=== PATIENT | female | born 1995 | race Caucasian/White ===

== ENCOUNTER 2017-01-13 12:19 | Outpatient (CLI) | payer OTHER ==
[2017-01-13 13:08] LABS: BASOPHILS # (AUTO) 0.1 10^3/uL (0.0-0.1); BASOPHILS % (AUTO) 0.8 %; EOSINOPHILS # (AUTO) 0.1 10^3/uL (0.0-0.7); EOSINOPHILS % (AUTO) 2.1 %; HCT - HEMATOCRIT 37.7 % (37.0-47.0); HGB - HEMOGLOBIN 12.9 g/dL (12.0-16.0); LYMPHOCYTES # (AUTO) 1.9 10^3/uL (1.5-3.5); MEAN CORPUSCULAR HGB CONC 34.2 g/dL (32.0-36.0); MEAN CORPUSCULAR VOLUME 93.5 fL (81.0-99.0); MEAN PLATELET VOLUME 7.3 fL (7.9-10.8); MONOCYTES # (AUTO) 0.3 10^3/uL (0.0-1.0); MONOCYTES % (AUTO) 4.7 %; NEUTROPHILS # (AUTO) 4.3 10^3/uL (1.5-6.6); NEUTROPHILS % (AUTO) 64.4 %; RED BLOOD COUNT 4.04 10^6/uL (4.20-5.40); RED CELL DISTRIBUTION WIDTH 12.2 % (12.0-15.0); UNCORRECTED WHITE BLOOD COUNT 6.6 x10^3/uL; WHITE BLOOD COUNT 6.6 x10^3/uL (4.8-10.8)
[2017-01-13 14:05] LABS: HEMOGLOBIN A1C 0.42 g/dL
[2017-01-13 14:31] LABS: THYROID STIMULATING HORMONE 2.33 uIU/mL (0.34-5.60)
[2017-01-13 14:36] LABS: PROLACTIN 6.15 ng/mL
[2017-01-14 05:16] LABS: TEST RESULT REPORT
[2017-01-17 17:01] LABS: TEST RESULT REPORT
== END 2017-01-13 12:20 | disposition home or self-care (01) ==
LOC: LAB 12:19
PROVIDERS: ATTEND Registered Nurse
DX: N92.5 Other specified irregular menstruation (principal)
CPT/HCPCS: 36415; 81599; 82627; 83036; 84146; 84402; 84403; 84443; 85025; 85651; 86141

== ENCOUNTER 2017-01-20 12:19 | Outpatient (CLI) | payer OTHER | END 2017-01-20 12:20 | disposition home or self-care (01) | LOC: LAB 12:19 | PROVIDERS: ATTEND Registered Nurse | DX: N92.5 Other specified irregular menstruation (principal) | CPT/HCPCS: 36415; 84144 ==

== ENCOUNTER 2017-02-05 16:57 | Outpatient (CLI) | payer OTHER ==
--- NOTE | 2017-02-06 11:26 | Ultrasound Report ---
RENAL ULTRASOUND: 02/05/2017 CLINICAL INDICATION: Androgen excess, question adrenal mass. TECHNIQUE: Real-time scanning was performed with herbicide service sales representative static images obtained. FINDINGS: Ultrasound of the kidneys was performed. The right kidney measures 9.1 x 4.2 x 4.1 cm, an d the left kidney measures 9.0 x 3.8 x 3.8 cm. Both kidneys demonstrate normal renal echotexture. N o hydronephrosis or focal renal abnormality is appreciated. Scanning of the bilateral suprarenal spa royer demonstrates no evidence of an adrenal mass. The visualized portions of the spleen and liver harry ear unremarkable. No free fluid is present. IMPRESSION: NO EVIDENCE OF AN ADRENAL MASS ON EITHER SIDE. UNREMARKABLE KIDNEYS. JOB #: [id number] EXT JOB #:[id number]
== END 2017-02-05 16:58 | disposition home or self-care (01) ==
LOC: DI 16:57
PROVIDERS: ATTEND Registered Nurse
DX: E28.1 Androgen excess (principal)
CPT/HCPCS: 76770

== ENCOUNTER 2017-02-21 13:42 | Outpatient (CLI) | payer OTHER ==
[2017-02-21 15:35] LABS: FOLLICLE STIMULATING HORMONE 6.24 mIU/mL
[2017-02-21 15:36] LABS: LUTEINIZING HORMONE 3.8 mIU/mL
== END 2017-02-21 13:43 | disposition home or self-care (01) ==
LOC: LAB 13:42
PROVIDERS: ATTEND Registered Nurse
DX: E28.1 Androgen excess (principal)
CPT/HCPCS: 36415; 82670; 83001; 83002

== ENCOUNTER 2017-03-11 12:54 | Outpatient (CLI) | payer OTHER | END 2017-03-11 12:55 | disposition home or self-care (01) | LOC: LAB 12:54 | PROVIDERS: ATTEND Registered Nurse | DX: E28.1 Androgen excess (principal) | CPT/HCPCS: 36415; 84144 ==

== ENCOUNTER 2017-04-10 15:30 | Outpatient (CLI) | payer OTHER | END 2017-04-10 15:31 | disposition home or self-care (01) | LOC: LAB 15:30 | PROVIDERS: ATTEND Registered Nurse | DX: E28.2 Polycystic ovarian syndrome (principal) | CPT/HCPCS: 36415; 84144 ==

== ENCOUNTER 2017-06-16 15:38 | Outpatient (CLI) | payer OTHER | END 2017-06-16 15:39 | disposition home or self-care (01) | LOC: LAB 15:38 | PROVIDERS: ATTEND Registered Nurse | DX: E28.2 Polycystic ovarian syndrome (principal) | CPT/HCPCS: 36415; 84144 ==

== ENCOUNTER 2017-06-24 11:16 | Outpatient (CLI) | payer OTHER ==
[~2017-06-24 11:16] MED LIST: IOTHALAMATE MEGLUMINE 50 ML VIAL ONE
[2017-06-24] MEDS ORDERED: IOTHALAMATE MEGLUMINE 50 ML VIAL IVP ONE (12:59)
--- NOTE | 2017-06-24 14:52 | XRAY Report ---
HYSTEROSALPINGOGRAM: 06/24/2017 CLINICAL INDICATION: Infertility. FINDINGS: Hysterosalpingogram was performed in conjunction with Dr. Sheldon. The uterine cavity appears unremarkable. The left falopian tube is patent, but there is loculation of contrast in the left pelvis. Free spill from the right fallopian tube. No intraluminal filling defect is appreciated within the uterine cavity. IMPRESSION: PATENT LEFT FALLOPIAN TUBE, WITH LEFT-SIDED PELVIC ADHESIONS. FREE SPILL FROM THE PATENT RIGHT FALLOPIAN TUBE. NORMAL UTERINE CAVITY. FLUOROSCOPY TIME: 2 minutes; 5 spot images obtained. TD: 06/24/2017 14:51 MTDD
== END 2017-06-24 11:17 | disposition home or self-care (01) ==
LOC: DI 11:16
PROVIDERS: ATTEND Registered Nurse
DX: N97.9 Female infertility, unspecified (principal); N73.6 Female pelvic peritoneal adhesions (postinfective)
CPT/HCPCS: 58340; 74740; Q9961

== ENCOUNTER 2017-07-14 16:03 | Outpatient (CLI) | payer OTHER | END 2017-07-14 16:04 | disposition home or self-care (01) | LOC: LAB 16:03 | PROVIDERS: ATTEND Registered Nurse | DX: N97.9 Female infertility, unspecified (principal) | CPT/HCPCS: 36415; 84144 ==

== ENCOUNTER 2017-07-28 11:40 | Emergency (ER) | payer OTHER ==
[2017-07-28 12:14] LABS: BILIRUBIN,URINE NEGATIVE (NEGATIVE); GLUCOSE, URINE (UA) NEGATIVE (NEGATIVE); KETONES,URINE (UA) NEGATIVE (NEGATIVE); LEUKOCYTE ESTERASE, URINE MODERATE (NEGATIVE); NITRITE,URINE NEGATIVE (NEGATIVE); OCCULT BLOOD,URINE TRACE-INTA (NEGATIVE); PH,URINE 5.5 PH (5.0-7.5); PROTEIN,URINE NEGATIVE (NEGATIVE); UROBILINOGEN,URINE 0.2 (NORMAL) E.U./dL (NORMAL)
[2017-07-28 12:16] LABS: CLARITY,URINE HAZY (CLEAR)
[2017-07-28 12:25] LABS: BACTERIA,URINE Few /HPF (None Seen); RBC,URINE 0-5 /HPF (0-5); SQUAMOUS EPITHELIAL CELL,UR FEW Squamous (<= Few)
[2017-07-28 12:26] LABS: BASOPHILS # (AUTO) 0.1 10^3/uL (0.0-0.1); BASOPHILS % (AUTO) 0.9 %; EOSINOPHILS # (AUTO) 0.3 10^3/uL (0.0-0.7); EOSINOPHILS % (AUTO) 4.5 %; HGB - HEMOGLOBIN 12.1 g/dL (12.0-16.0); LYMPHOCYTES # (AUTO) 1.8 10^3/uL (1.5-3.5); LYMPHOCYTES % (AUTO) 30.1 %; MEAN CORPUSCULAR HEMOGLOBIN 31.5 pg (27.0-31.0); MEAN CORPUSCULAR HGB CONC 33.3 g/dL (32.0-36.0); MEAN CORPUSCULAR VOLUME 94.6 fL (81.0-99.0); MEAN PLATELET VOLUME 7.3 fL (7.9-10.8); MONOCYTES # (AUTO) 0.4 10^3/uL (0.0-1.0); MONOCYTES % (AUTO) 6.1 %; NEUTROPHILS # (AUTO) 3.5 10^3/uL (1.5-6.6); NEUTROPHILS % (AUTO) 58.4 %; PLT - PLATELET COUNT 256 10^3/uL (130-450); RED BLOOD COUNT 3.83 10^6/uL (4.20-5.40)
--- NOTE | 2017-07-28 12:27 | ED Physician Documentation ---
History of Present Illness - Stated complaint Stated Complaint: BLEEDING/5WKS - Chief complaint Chief Complaint: General - History obtained from History obtained from: Patient, Family - History of Present Illness Timing: Today Pain level max: 0 Pain level now: 0 Improved by: nothing Worsened by: nothing - Additonal information Additional information: Patient is a 21-year-old female with a history of polycystic ovarian syndrome who has been trying to get for some time. Had a positive test at home today had vaginal bleeding with a small blood clot passed. No further abdominal cramping or bleeding. Concerned she may be miscarrying. Review of Systems Ten Systems: 10 systems reviewed and negative Constitutional: denies: Fever, Chills Ears: denies: Ear pain Nose: denies: Rhinorrhea / runny nose, Congestion Throat: denies: Sore throat Respiratory: denies: Cough GI: denies: Nausea, Vomiting, Diarrhea : denies: Dysuria, Frequency, Hesitancy, Incontinent Skin: denies: Rash PD PAST MEDICAL HISTORY - Past Medical History Past Medical History: Yes Other Past Medical History: PCOS - Present Medications Home Medications: Ambulatory Orders Medication Instructions Recorded Confirmed Cephalexin [Keflex] 500 mg PO Q6H #20 capsule 07/28/17 Pnv No.122/Iron/Folic Acid 07/28/17 [ Multi Tablet] metFORMIN [Glucophage] 500 mg PO BIDWM 07/28/17 07/28/17 - Allergies Allergies/Adverse Reactions: Allergies Allergy/AdvReac Type Severity Reaction Status Date / Time Sulfa (Sulfonamide Allergy Rash Verified 07/28/17 11:49 Antibiotics) - Social History Does the pt smoke?: No Smoking Status: Never smoker PD ED PE NORMAL - Vitals Vital signs reviewed: Yes - General General: Alert and oriented X 3, No acute distress - HEENT HEENT: Moist mucous membranes - Neck Neck: Supple, no meningeal sign - Cardiac Cardiac: RRR - Respiratory Respiratory: No respiratory distress, Clear bilaterally - Abdomen Abdomen: Soft, Non tender, Non distended - Back Back: No CVA TTP - Derm Derm: Warm and dry, No rash - Extremities Extremities: No edema - Neuro Neuro: Alert and oriented X 3 Results - Vitals Vitals: Oxygen O2 Source Room air - Labs Labs: Microbiology 07/28/17 12:00 Urine Culture - Final Urine,Random 10-50,000 COLONIES/ML Polymicrobial growth including potential pathogens. This is suggestive of skin or other contamination. Laboratory Tests 07/28/17 07/28/17 07/28/17 12:00 12:08 12:08 WBC 6.0 RBC 3.83 L Hgb 12.1 Hct 36.3 L MCV 94.6 MCH 31.5 H MCHC 33.3 RDW 12.0 Plt Count 256 MPV 7.3 L Neut # 3.5 Lymph # 1.8 [place]oux # 0.4 Eos # 0.3 Baso # 0.1 Absolute Nucleated RBC 0.00 Nucleated RBC % 0.0 Sodium 136 Potassium 3.6 Chloride 104 Carbon Dioxide 23 Anion Gap 9.0 BUN 7 Creatinine 0.6 Estimated GFR (MDRD) 124 Glucose 93 Calcium 8.7 Total Bilirubin 0.6 AST 17 ALT < 10 L Alkaline Phosphatase 43 Total Protein 7.2 Albumin 4.4 Globulin 2.8 Albumin/Globulin Ratio 1.6 Lipase 18 L HCG, Quant Urine Color YELLOW Urine Clarity HAZY Urine pH 5.5 Ur Specific Lee 1.010 Urine Protein NEGATIVE Urine Glucose (UA) NEGATIVE Urine Ketones NEGATIVE Urine Occult Blood TRACE-INTA Urine Nitrite NEGATIVE Urine Bilirubin NEGATIVE Urine Urobilinogen 0.2 (NORMAL) Ur Leukocyte Esterase MODERATE H Urine RBC 0-5 Urine WBC 6-10 H Ur Squamous Epith Cells FEW Squamous Urine Bacteria Few Ur Microscopic Review INDICATED Urine Culture Comments INDICATED Blood Type 07/28/17 07/28/17 12:08 12:08 WBC RBC Hgb Hct MCV MCH MCHC RDW Plt Count MPV Neut # Lymph # [place] # Eos # Baso # Absolute Nucleated RBC Nucleated RBC % Sodium Potassium Chloride Carbon Dioxide Anion Gap BUN Creatinine Estimated GFR (MDRD) Glucose Calcium Total Bilirubin AST ALT Alkaline Phosphatase Total Protein Albumin Globulin Albumin/Globulin Ratio Lipase HCG, Quant 1299.45 Urine Color Urine Clarity Urine pH Ur Specific Lee Urine Protein Urine Glucose (UA) Urine Ketones Urine Occult Blood Urine Nitrite Urine Bilirubin Urine Urobilinogen Ur Leukocyte Esterase Urine RBC Urine WBC Ur Squamous Epith Cells Urine Bacteria Ur Microscopic Review Urine Culture Comments Blood Type B POSITIVE - Rads (name of study) pelvic US Radiology: Prelim report reviewed, EMP read contemporaneously, See rad report ( Possible tiny gestational sac within the endometrium. Follow-up serial quantitative beta-hCG is recommended and rescan in approximately 14 days for viability if clinically warranted.) PD MEDICAL DECISION MAKING - ED course Complexity details: reviewed results, re-evaluated patient, considered differential, d/w patient ED course: Patient is a 21-year-old female who presents to the emergency department with a threatened . Will have her follow-up with her FILTER PRESS TENDER HEAD in 2-3 days for repeat hCG to see which direction it is trending. She was counseled regarding her ultrasound results as well. She appears to have a UTI and will treat her for this. Patient has no abdominal pain. No current cramping. Patient counseled regarding signs and symptoms for which I believe and urgent re- evaluation would be necessary. Patient with good understanding of and agreement to plan and is comfortable going home at this time This document was made in part using voice recognition software. While efforts are made to proofread this document, sound alike and grammatical errors may occur. Departure - Departure Disposition: 01 Home, Self Care Clinical Impression: Threatened in early UTI (urinary tract infection) Qualifiers: Urinary tract infection type: acute cystitis Hematuria presence: without hematuria Qualified Code(s): N30.00 - Acute cystitis without hematuria Condition: Good Instructions: ED Miscarriage Poss, ED UTI Cystitis Female Follow-Up: Kimmie Davis, [facility], DEVELOPMENT CHEMIST [Provider Admit Priv/Credential] - Prescriptions: Cephalexin [Keflex] 500 mg PO Q6H #20 capsule Comments: Make sure to follow up with your doctor in 3 days for repeat HCG, it is 1299 today. Take all antbiotics until gone. Return if you worsen. Discharge Date/Time: 07/28/17 13:42
[2017-07-28 12:36] LABS: ALBUMIN 4.4 g/dL (3.2-5.5); ALBUMIN/GLOBULIN RATIO 1.6 (1.0-2.2); ALKALINE PHOSPHATASE 43 IU/L (42-121); ALT ALANINE AMINOTRANSFERASE < 10 IU/L (10-60); AST ASPARTATE AMINOTRANSFERASE 17 IU/L (10-42); BILIRUBIN,TOTAL 0.6 mg/dL (0.2-1.0); BUN - BLOOD UREA NITROGEN 7 mg/dL (6-20); CALCIUM 8.7 mg/dL (8.5-10.3); CARBON DIOXIDE - CO2 23 mmol/L (21-32); CHLORIDE 104 mmol/L (101-111); CREATININE 0.6 mg/dL (0.4-1.0); GFR - MDRD 124 (>89); GLUCOSE 93 mg/dL (70-100); LIPASE 18 U/L (22-51); SODIUM 136 mmol/L (135-145); TOTAL PROTEIN 7.2 g/dL (6.7-8.2)
[2017-07-28] MEDS ORDERED: cephALEXin 250 MG CAPSULE PO STA (13:08)
[2017-07-28 13:42] VITALS: BP 124/76
--- NOTE | 2017-07-28 15:34 | Ultrasound Report ---
FIRST TRIMESTER OB ULTRASOUND WITH TRANSVAGINAL: 07/28/2017 CLINICAL INDICATION: 5 weeks , vaginal bleeding. TECHNIQUE: Transabdominal pelvic ultrasound performed for global evaluation. Transvaginal pelvic ultrasound performed for detailed evaluation. Real-time scanning performed and static images obtained. FINDINGS The uterus is anteverted. There is a 2 mm fluid collection in the endometrial canal, which may represent a tiny gestational sac. The cervix is closed. The right ovary measures 4.0 x 3.3 x 2.4 cm, and contains a 1.7 cm hemorrhagic cyst. The left ovary measures 4.8 x 3.1 x 2.6 cm, and contains a 2.9 cm hemorrhagic cyst. No free fluid is present. IMPRESSION: POSSIBLE TINY GESTATIONAL SAC WITHIN THE ENDOMETRIUM. FOLLOWUP SERIAL QUANTITATIVE BETA HCG IS RECOMMENDED, AND RESCAN IN APPROXIMATELY 14 DAYS FOR VIABILITY, IF CLINICALLY WARRANTED. TD: 07/28/2017 13:05 REVISED: REPORT ORIG. SIGNED ON 07/28/17@1557; ORDERS LINKED ON 09/22/17 jll MTDD
== END 2017-07-28 13:42 | disposition home or self-care (01) ==
LOC: ED 11:40
DX: O20.0 Threatened abortion (principal); O23.11 Infections of bladder in pregnancy, first trimester; Z3A.01 Less than 8 weeks gestation of pregnancy
CPT/HCPCS: 36415; 76801; 76817; 80053; 81001; 83690; 84702; 85025; 86900; 86901; 87086; 99283; 99284; A9270; 81003

== ENCOUNTER 2017-07-31 10:20 | Outpatient (CLI) | payer OTHER | END 2017-07-31 10:21 | disposition home or self-care (01) | LOC: LAB 10:20 | PROVIDERS: ATTEND Registered Nurse | DX: Z32.00 Encounter for pregnancy test, result unknown (principal) | CPT/HCPCS: 36415; 84702 ==

== ENCOUNTER 2017-08-26 10:32 | Outpatient (CLI) | payer OTHER ==
[2017-08-26 11:11] LABS: BASOPHILS % (AUTO) 0.6 %; EOSINOPHILS # (AUTO) 0.4 10^3/uL (0.0-0.7); EOSINOPHILS % (AUTO) 5.5 %; HGB - HEMOGLOBIN 11.6 g/dL (12.0-16.0); LYMPHOCYTES # (AUTO) 1.8 10^3/uL (1.5-3.5); LYMPHOCYTES % (AUTO) 26.7 %; MEAN CORPUSCULAR HEMOGLOBIN 32.3 pg (27.0-31.0); MEAN CORPUSCULAR HGB CONC 33.5 g/dL (32.0-36.0); MEAN CORPUSCULAR VOLUME 96.5 fL (81.0-99.0); MEAN PLATELET VOLUME 7.4 fL (7.9-10.8); MONOCYTES # (AUTO) 0.4 10^3/uL (0.0-1.0); MONOCYTES % (AUTO) 5.6 %; NEUTROPHILS # (AUTO) 4.1 10^3/uL (1.5-6.6); NEUTROPHILS % (AUTO) 61.6 %; PLT - PLATELET COUNT 246 10^3/uL (130-450); RED BLOOD COUNT 3.58 10^6/uL (4.20-5.40); RED CELL DISTRIBUTION WIDTH 12.4 % (12.0-15.0); WHITE BLOOD COUNT 6.7 x10^3/uL (4.8-10.8)
[2017-08-26 12:23] LABS: BILIRUBIN,URINE NEGATIVE (NEGATIVE); GLUCOSE, URINE (UA) NEGATIVE (NEGATIVE); KETONES,URINE (UA) NEGATIVE (NEGATIVE); LEUKOCYTE ESTERASE, URINE SMALL (NEGATIVE); NITRITE,URINE NEGATIVE (NEGATIVE); OCCULT BLOOD,URINE SMALL (NEGATIVE); PROTEIN,URINE NEGATIVE (NEGATIVE); UROBILINOGEN,URINE 0.2 (NORMAL) E.U./dL (NORMAL)
[2017-08-26 12:29] LABS: CLARITY,URINE CLEAR (CLEAR)
[2017-08-26 12:59] LABS: BACTERIA,URINE Many /HPF (None Seen); RBC,URINE 0-5 /HPF (0-5); SQUAMOUS EPITHELIAL CELL,UR MANY Squamous (<= Few)
[2017-08-27 13:28] LABS: HEPATITIS C ANTIBODY NON-REACTIVE (NON-REACTIVE)
[2017-08-27 13:30] LABS: HEPATITIS B SURFACE ANTIGEN NON-REACTIVE (NON-REACTIVE)
[2017-08-27 13:31] LABS: HIV AG/AB 4TH GEN NON-REACTIVE (NON-REACTIVE)
== END 2017-08-26 10:33 | disposition home or self-care (01) ==
LOC: LAB 10:32
PROVIDERS: ATTEND Nurse Practitioner Obstetrics & Gynecology
DX: Z36.9 Encounter for antenatal screening, unspecified (principal)
CPT/HCPCS: 36415; 81001; 81599; 85025; 86592; 86762; 86803; 86850; 86900; 86901; 87340; 87389

== ENCOUNTER 2017-11-11 12:43 | Outpatient (CLI) | payer OTHER ==
--- NOTE | 2017-11-11 16:20 | Ultrasound Report ---
Reason: ENCTR FOR SUPRVSN OF NORMAL 2 TRIM Procedure Date: 11/11/2017 Accession Number: [id number] / [id number] Procedure: US - OB Detailed Eval CPT Code: FULL RESULT: EXAM: COMPLETE OBSTETRICAL ULTRASOUND EXAM DATE: 11/11/2017 03:51 PM. CLINICAL HISTORY: anatomic survey. COMPARISON: None. TECHNIQUE: Real-time sonographic evaluation of the fetus performed by the sap specialist. Multiple welding equipment sales representative static images were saved for review. DATING: EGA 20 weeks 2 days with EMMY 03/29/2018 based on LMP. EGA 20 weeks 0 days with EMMY 03/31/2018 based on the current ultrasound. GENERAL EVALUATION Hamilton . Cardiac activity: 135 bpm. movement: Present Presentation: Variable Placenta: Anterior position. No evidence for previa. Umbilical cord: 3 vessel cord. Central placental cord origin. Amniotic fluid: Subjectively normal. MVP 5.5 cm. BIOMETRY Bi-Parietal Diameter (BPD): 4.9 cm, 20 weeks 5 days Head Circumference (HC): 17.7 cm, 20 weeks 1 day Abdominal Circumference (AC): 14.9 cm, 20 weeks 0 days Femur Length (FL): 3.1 cm, 19 weeks 4 days Estimated Weight: 325 gm ANATOMY The intracranial structures, profile, face/nose/lips, spine, 4 chamber heart and outflow tracts, stomach, abdominal wall and cord insertion, diaphragm, kidneys, bladder, and extremities were imaged and demonstrate no abnormality. MATERNAL STRUCTURES Uterus: Unremarkable. Cervix: Long and closed. Transabdominal length 3.8 cm. Right ovary/adnexa: Unremarkable. Left ovary/adnexa: Unremarkable. Free fluid: None. IMPRESSION: 1. Hamilton intrauterine with gestational age 20 weeks 0 days based on composite ultrasound measurements today, concordant with the expected age by LMP. Assigned EMMY is 03/29/2018 based on LMP. 2. Estimated weight is within expected limits for assigned dating. 3. Normal anatomic survey. No anatomic abnormalities are detected at this time. RADIA
== END 2017-11-11 12:44 | disposition home or self-care (01) ==
LOC: DI 12:43
PROVIDERS: ATTEND Registered Nurse
DX: Z34.82 Encounter for supervision of other normal pregnancy, second trimester (principal); Z3A.20 20 weeks gestation of pregnancy
CPT/HCPCS: 76811

== ENCOUNTER 2017-11-28 15:02 | Outpatient (CLI) | payer OTHER ==
[2017-11-28 15:14] VITALS: BP 116/57
[2017-11-28 15:45] LABS: BILIRUBIN,URINE NEGATIVE (NEGATIVE); GLUCOSE, URINE (UA) NEGATIVE (NEGATIVE); KETONES,URINE (UA) NEGATIVE (NEGATIVE); LEUKOCYTE ESTERASE, URINE TRACE (NEGATIVE); NITRITE,URINE NEGATIVE (NEGATIVE); OCCULT BLOOD,URINE NEGATIVE (NEGATIVE); PH,URINE 6.5 PH (5.0-7.5); PROTEIN,URINE NEGATIVE (NEGATIVE); UROBILINOGEN,URINE 0.2 (NORMAL) E.U./dL (NORMAL)
[2017-11-28 15:54] LABS: CLARITY,URINE CLEAR (CLEAR)
[2017-11-28 15:55] LABS: BACTERIA,URINE None Seen /HPF (None Seen); RBC,URINE 0-5 /HPF (0-5); SQUAMOUS EPITHELIAL CELL,UR FEW Squamous (<= Few)
[2017-11-28] MEDS ORDERED: LACTATED RINGERS 1,000 ML IV ONE (16:33)
[2017-11-28] MEDS ORDERED: ONDANSETRON 4 MG/2 ML VIAL ONE (16:33)
[2017-11-28 18:57] LABS: BASOPHILS % (AUTO) 0.3 %; EOSINOPHILS # (AUTO) 0.2 10^3/uL (0.0-0.7); EOSINOPHILS % (AUTO) 2.3 %; HGB - HEMOGLOBIN 9.6 g/dL (12.0-16.0); LYMPHOCYTES # (AUTO) 1.4 10^3/uL (1.5-3.5); LYMPHOCYTES % (AUTO) 15.8 %; MEAN CORPUSCULAR HEMOGLOBIN 33.4 pg (27.0-31.0); MEAN CORPUSCULAR HGB CONC 34.2 g/dL (32.0-36.0); MEAN CORPUSCULAR VOLUME 97.5 fL (81.0-99.0); MEAN PLATELET VOLUME 6.9 fL (7.9-10.8); MONOCYTES # (AUTO) 0.6 10^3/uL (0.0-1.0); MONOCYTES % (AUTO) 6.6 %; NEUTROPHILS # (AUTO) 6.8 10^3/uL (1.5-6.6); PLT - PLATELET COUNT 238 10^3/uL (130-450); RED BLOOD COUNT 2.89 10^6/uL (4.20-5.40)
--- NOTE | 2017-11-28 19:49 | Ultrasound Report ---
Reason: Right flank pain Procedure Date: 11/28/2017 Accession Number: [id number] / [id number] Procedure: US - Retroperitoneal Limited CPT Code: FULL RESULT: EXAM: RENAL ULTRASOUND EXAM DATE: 11/28/2017 07:24 PM. CLINICAL HISTORY: Right flank pain. Patient is . COMPARISON: None. TECHNIQUE: Real-time scanning was performed with static images obtained. FINDINGS: Right Kidney: 9.5 x 5.5 x 4.6 cm. Mild right hydronephrosis. Left Kidney: 8.9 x 4.6 x 5.3 cm. Normal echotexture with no stones, contour-deforming masses, or hydronephrosis. Bladder: Only a left ureteral jet was seen. Bladder otherwise appeared unremarkable. Other: None. IMPRESSION: 1. Mild right hydronephrosis could be normal physiologic changes of or potentially related to distal obstruction. No right ureteral jet seen. RADIA
== END 2017-11-28 21:15 | disposition home or self-care (01) ==
LOC: WFO 15:02 → FBP 15:04 → WFO 21:15
PROVIDERS: ATTEND Nurse Practitioner Obstetrics & Gynecology
DX: O21.2 Late vomiting of pregnancy (principal); O99.89 Other specified diseases and conditions complicating pregnancy, childbirth and the puerperium; M54.9 Dorsalgia, unspecified; N13.30 Unspecified hydronephrosis; Z3A.22 22 weeks gestation of pregnancy
CPT/HCPCS: 76775; 81001; 85025; 87086; 96374; 99213; J7120; 81003

== ENCOUNTER 2018-01-07 11:17 | Outpatient (CLI) | payer OTHER ==
[2018-01-07 12:39] LABS: BASOPHILS % (AUTO) 0.5 %; EOSINOPHILS # (AUTO) 0.1 10^3/uL (0.0-0.7); EOSINOPHILS % (AUTO) 1.6 %; LYMPHOCYTES % (AUTO) 11.8 %; MEAN CORPUSCULAR HGB CONC 35.2 g/dL (32.0-36.0); MEAN CORPUSCULAR VOLUME 96.7 fL (81.0-99.0); MEAN PLATELET VOLUME 6.9 fL (7.9-10.8); MONOCYTES # (AUTO) 0.5 10^3/uL (0.0-1.0); NEUTROPHILS # (AUTO) 6.6 10^3/uL (1.5-6.6); NEUTROPHILS % (AUTO) 80.1 %; PLT - PLATELET COUNT 223 10^3/uL (130-450); RED BLOOD COUNT 2.95 10^6/uL (4.20-5.40); RED CELL DISTRIBUTION WIDTH 12.9 % (12.0-15.0); WHITE BLOOD COUNT 8.3 x10^3/uL (4.8-10.8)
== END 2018-01-07 11:18 | disposition home or self-care (01) ==
LOC: LAB 11:17
PROVIDERS: ATTEND Registered Nurse
DX: Z34.82 Encounter for supervision of other normal pregnancy, second trimester (principal)
CPT/HCPCS: 36415; 82950; 85025; 86850

== ENCOUNTER 2018-02-02 07:50 | Outpatient (CLI) | payer OTHER | END 2018-02-02 07:51 | disposition home or self-care (01) | LOC: LAB 07:50 | PROVIDERS: ATTEND Registered Nurse | DX: R73.02 Impaired glucose tolerance (oral) (principal) | CPT/HCPCS: 36415; 82951; 82952 ==

== ENCOUNTER 2018-03-02 11:01 | Outpatient (CLI) | payer OTHER ==
[2018-03-04 12:16] LABS: HEPATITIS C ANTIBODY NON-REACTIVE (NON-REACTIVE)
[2018-03-04 14:16] LABS: HIV AG/AB 4TH GEN NON-REACTIVE (NON-REACTIVE)
== END 2018-03-02 11:02 | disposition home or self-care (01) ==
LOC: LAB 11:01
PROVIDERS: ATTEND Registered Nurse
DX: O09.00 Supervision of pregnancy with history of infertility, unspecified trimester (principal)
CPT/HCPCS: 36415; 81599; 86592; 86803; 87389; 87491; 87591; 87797

== ENCOUNTER 2018-03-24 08:00 | Outpatient (CLI) | payer OTHER | END 2018-03-24 23:59 | disposition home or self-care (01) | LOC: LAB.R 08:00 | PROVIDERS: ATTEND Nurse Practitioner Obstetrics & Gynecology | DX: R82.79 Other abnormal findings on microbiological examination of urine (principal) | CPT/HCPCS: 87086 ==

== ENCOUNTER 2018-03-29 00:54 | Inpatient (IN) | payer OTHER ==
[2018-03-29] MEDS ORDERED: SODIUM CHLORIDE FLUSH 0.9% 10 ML SYRINGE IVP PRN ×2 (01:44→05:37)
[2018-03-29] MEDS ORDERED: LACTATED RINGERS 1,000 ML IV SCH (02:00)
[2018-03-29] MEDS ORDERED: OXYTOCIN/SODIUM CHLORIDE 500 ML IV ONE (02:29)
[2018-03-29 02:40] LABS: BASOPHILS # (AUTO) 0.1 10^3/uL (0.0-0.1); BASOPHILS % (AUTO) 0.7 %; EOSINOPHILS # (AUTO) 0.2 10^3/uL (0.0-0.7); HGB - HEMOGLOBIN 10.6 g/dL (12.0-16.0); LYMPHOCYTES # (AUTO) 1.6 10^3/uL (1.5-3.5); LYMPHOCYTES % (AUTO) 18.2 %; MEAN CORPUSCULAR HEMOGLOBIN 32.2 pg (27.0-31.0); MEAN CORPUSCULAR HGB CONC 34.6 g/dL (32.0-36.0); MEAN CORPUSCULAR VOLUME 92.9 fL (81.0-99.0); MEAN PLATELET VOLUME 8.5 fL (7.9-10.8); MONOCYTES # (AUTO) 0.6 10^3/uL (0.0-1.0); MONOCYTES % (AUTO) 6.7 %; NEUTROPHILS # (AUTO) 6.2 10^3/uL (1.5-6.6); NEUTROPHILS % (AUTO) 72.4 %; PLT - PLATELET COUNT 241 10^3/uL (130-450); RED CELL DISTRIBUTION WIDTH 13.5 % (12.0-15.0); WHITE BLOOD COUNT 8.6 x10^3/uL (4.8-10.8)
[2018-03-29] MEDS ORDERED: ROPIVACAINE 0.2% PF 20 ML AMPULE ONE (03:25)
[2018-03-29] MEDS ORDERED: fent/BUPIV 2 MCG/0.125% 250 ML EP ONE (03:25)
[2018-03-29] MEDS ORDERED: TERBUTALINE 1 MG/ML VIAL SUBQ ONE ×2 (03:43→06:48)
--- NOTE | 2018-03-29 04:08 | HISTORY & PHYSICAL EXAMINATION ---
Admit History - Visit Reason Visit Reason: Contractions, Membranes rupture - : 1 Parity: 0 Premature: 0 Ectopic: 0 : 0 Care: positive: [facility] Risk/History: positive: None Complications This : positive: None Smoking Status: Never smoker - Mother's Labs Mother's Blood Type: positive: B Mother's RH: positive: Positive GBS: positive: Group B Step Negative Rubella Status: positive: Immune Meds/Allgy - Home Medications Home Medications: Ambulatory Orders Medication Instructions Recorded Confirmed Cephalexin [Keflex] 500 mg PO Q6H #20 capsule 07/28/17 Pnv No.122/Iron/Folic Acid 07/28/17 [ Multi Tablet] metFORMIN [Glucophage] 500 mg PO BIDWM 07/28/17 07/28/17 - Allergies Allergies/Adverse Reactions: Allergies Allergy/AdvReac Type Severity Reaction Status Date / Time Sulfa (Sulfonamide Allergy Rash Verified 07/28/17 11:49 Antibiotics) Review of Systems - Constitutional Constitutional: denies: Fatigue, Fever, Chills - Eyes Eyes: denies: Blurred vision, Vision loss, Dipolpia - Cardiovascular Cariovascular: denies: Irregular heart rate, Palpitations, Chest pain - Respiratory Respiratory: denies: Cough, Sputum production, Wheezing - Gastrointestinal Gastrointestinal: denies: Abdominal pain, Constipation, Diarrhea, Change in bowel habits, Nausea, Vomiting - Genitourinary Genitourinary: denies: Dysuria, Frequency, Urgency, Hematuria - Integumentary Integumentary: denies: Rash, Pruritis - Psychiatric Psychiatric: reports: Anxiety. denies: Depression Physical - Abdominal Exam Vital Signs: Temp Pulse Resp BP Pulse Ox 36.9 C 20 99 03/29/18 01:01 03/29/18 01:01 03/29/18 01:01 Contraction Intensity: positive: Strong Uterine Resting Tone: positive: Soft - Monitoring Heart Rate Baseline: 125 Strip Review: positive: Category I - Presentation Presentation: positive: Breech - Vaginal Exam Membranes: positive: Membranes ruptured Dilation (in cm): 8 Effacement (%): 100 Station: positive: 1 Plan for Labor - Plan For Labor I expect patient to be DC'd or transferred within 96 hours.: Yes Plan for Labor: HPI: 22yo presented at approximately 0130 on 03/29/2018 with c/o grossly ruptured membranes that occurred at approximately 0001 on 03/29/2018 and was noted to be a moderate amount of clear fluid. Upon arrival she was noted to contract every 3-4 minutes and cervix was noted to be 3cm dilated with ruptured membranes and continued gross leakage of clear amniotic fluid. Per RN report presentation was vertex. She was admitted to L&D for expectant management. At approximately 0330 the patient began to feel increased discomfort and requested an epidural for pain management. Repeat SVE by L&D RN revealed cervix 5cm dilated with questionable presentation. Call was placed to myself, commissioner of relocation services CNM with request for further evaluation of presentation. Upon my arrival the pt was sitting up at the edge of the bed for epidural placement. She was experiencing a significant amount of discomfort and not coping well with contractions. Immediately following epidural placement, repeat SVE revealed 8/100/+1 with renée breech presentation. Terbutaline immediately administered to patient for cessation of uterine contractions and Dr. Pulido and OR team notified. Breech presentation verified via limited bedside ultrasound. complicated by hx of infertility and anemia complicating .
[2018-03-29] MEDS ORDERED: CITRIC ACID/SODIUM CITRATE 15 ML UDC PO ONE (04:09)
[2018-03-29] MEDS ORDERED: ceFAZolin 2 GM/50 ML 2 GM/50 ML BAG IV ONE (04:10)
[2018-03-29] MEDS ORDERED: LACTATED RINGERS 400 ML IV ONE (04:27)
[2018-03-29] MEDS ORDERED: ONDANSETRON 4 MG/2 ML VIAL IVP ONE (05:00)
[2018-03-29] MEDS ORDERED: LIDOCAINE-MPF 2% 5 ML VIAL IM ONE (05:00)
[2018-03-29] MEDS ORDERED: ACETAMINOPHEN 1,000 MG/100 ML 100 ML IV ONE (05:00)
[2018-03-29] MEDS ORDERED: MORPHINE PF 5 MG/10 ML AMP EP ONE (05:00)
[2018-03-29] MEDS ORDERED: KETOROLAC 30 MG/ML VIAL IVP ONE (05:00)
[2018-03-29] MEDS ORDERED: LACTATED RINGERS 1,000 ML IV ONE (05:05)
[2018-03-29] MEDS ORDERED: ONDANSETRON 4 MG/2 ML VIAL IVP PRN ×2 (05:37→06:01)
[2018-03-29] MEDS ORDERED: diphenhydrAMINE 25 MG CAPSULE PO PRN (05:37)
[2018-03-29] MEDS ORDERED: oxyCODONE 5 MG TABLET PO PRN (05:37)
--- NOTE | 2018-03-29 05:44 | OPERATIVE REPORT ---
Operative Report - General Admit Date: 03/29/18 Procedure Date: 03/29/18 Planned Procedure: Emergency PLTC/S Pre-Op Diagnosis: Breech, 40 weeks Procedure Performed: Emergency PLTC/S Post Op Diagnosis: Same - Procedure Note Primary Surgeon: Canelo Pulido MD Secondary Surgeon: Neena TRIPLETT Anesthesia Provider: Damari Christine CRNA Anesthesia Technique: Epidural IV Fluids (mL): 1,000 Estimated Blood Loss (mL): 500 Urine Output (mL): 150 Complications: none - Other Other Information/Narrative: Dictation # [id number]
[2018-03-29] MEDS ORDERED: OXYTOCIN/SODIUM CHLORIDE 500 ML IV SCH (06:00)
[2018-03-29] MEDS: LACTATED RINGERS 1,000 ML IV SCH ×2 (06:00→17:15)
[2018-03-29] MEDS ORDERED: LACTATED RINGERS 500 ML IV ONE (06:01)
[2018-03-29] MEDS ORDERED: NALOXONE 0.4 MG/ML VIAL IVP PRN (06:01)
[2018-03-29] MEDS ORDERED: METOCLOPRAMIDE 10 MG/2 ML VIAL IVP PRN (06:01)
[2018-03-29] MEDS ORDERED: ePHEDrine 50 MG/ML VIAL IVP PRN (06:01)
[2018-03-29] MEDS ORDERED: diphenhydrAMINE INJ 50 MG/ML VIAL IVP PRN (06:01)
[2018-03-29] MEDS ORDERED: NALBUPHINE 10 MG/ML AMP IVP PRN (06:01)
--- NOTE | 2018-03-29 06:03 | ANESTHESIA ---
Pre-Anesthesia VS, & Labs - Diagnosis labor analgesia, term - Procedure Labor epidural Vital Signs: Temp Pulse Resp BP Pulse Ox 36.1 C L 104 H 18 125/64 98 03/29/18 05:38 03/29/18 05:42 03/29/18 05:42 03/29/18 05:42 03/29/18 05:42 Height 5 ft 1 in Weight (kg) 70.307 kg Body Mass Index 22.4 - NPO Other (NPO at 0315) - Is Patient ?: Yes - Lab Results Current Lab Results: Laboratory Tests 03/29/18 02:20: WBC 8.6, RBC 3.30 L, Hgb 10.6 L, Hct 30.7 L, MCV 92.9, MCH 32.2 H, MCHC 34.6, RDW 13.5, Plt Count 241, MPV 8.5, Neut # (Auto) 6.2, Lymph # (Auto) 1.6, [place] # (Auto) 0.6, Eos # (Auto) 0.2, Baso # (Auto) 0.1, Absolute Nucleated RBC 0.01, Nucleated RBC % 0.1 Fish Bones: 03/29/18 02:20 Home Medications and Allergies Active Medications Acetaminophen (Tylenol) 1,000 mg PO Q8H BOB Diphenhydramine HCl (Benadryl) 25 mg PO Q6H PRN PRN Reason: ITCHING Lactated Ringer's (Lr) 1,000 mls @ 100 mls/hr IV .Q10H BOB Oxytocin/Sodium Chloride (Pitocin/Sodium Chloride) 500 mls @ 1 mls/hr IV TITR BOB; Protocol Ketorolac Tromethamine (Toradol Inj (30mg)) 30 mg IV Q6H BOB Stop: 03/30/18 00:01 Ondansetron HCl (Zofran Inj) 4 mg IVP Q4H PRN PRN Reason: Nausea / Vomiting Oxycodone HCl (Roxicodone) 5 mg PO Q4HR PRN PRN Reason: PAIN Sodium Chloride (Normal Saline Flush 0.9%) 10 ml IVP PRN PRN PRN Reason: NEEDED PER PROVIDER ORDERS Sodium Chloride (Normal Saline Flush 0.9%) 10 ml IVP 0100,0900,1700 BOB Sodium Chloride (Normal Saline Flush 0.9%) 10 ml IVP PRN PRN PRN Reason: NEEDED PER PROVIDER ORDERS Sodium Chloride (Normal Saline Flush 0.9%) 10 ml IVP 0100,0900,1700 [facility] Pnv No.122/Iron/Folic Acid [ Multi Tablet] 07/28/17 metFORMIN [Glucophage] 500 mg PO BIDWM 07/28/17 Allergies/Adverse Reactions: Allergies Allergy/AdvReac Type Severity Reaction Status Date / Time Sulfa (Sulfonamide Allergy Rash Verified 07/28/17 11:49 Antibiotics) Anes History & Medical History - Anesthetic History Anesthesia Complications: reports: No previous complications - Medical History Cardiovascular: reports: None Pulmonary: reports: None Gastrointestinal: reports: GERD Urinary: reports: None Neuro: reports: None Smoking Status: Never smoker - Obstetrical History : 1 Parity: 0 Events: positive: None Complications: positive: None Plan for Delivery: vaginal with epidural Exam General: Alert Dental: WNL Mouth Opening: Greater than 4 Fingerbreadths Neck Mobility: Normal Mallampati classification: II Thyromental Distance: greater than 6 cm Plan Anesthesia Type: Epidural Consent for Procedure(s) Verified and Reviewed: Yes Code Status: Attempt Resuscitation ASA classification: 2-Mild systemic disease Is this case an emergency?: No (converted to emergency after as breech)
[2018-03-29] MEDS ORDERED: SODIUM CHLORIDE FLUSH 0.9% 10 ML SYRINGE IVP SCH (09:00)
--- NOTE | 2018-03-29 11:01 | OPERATIVE REPORT ---
DATE OF SERVICE: 03/29/2018 Physician: Canelo Pulido MD PREOPERATIVE DIAGNOSES 1. 40 weeks' gestation. 2. Breech presentation. 3. Advanced dilatation. POSTOPERATIVE DIAGNOSES 1. 40 weeks' gestation. 2. Renée breech presentation with sacrum on the patient's right. 3. Advanced dilatation. PROCEDURE PERFORMED: Emergency primary low transverse section. SURGEON: Canelo Pulido MD CLERK OPERATOR: Neena Lewis CNM, CRNA. ANESTHESIA PROVIDER: Tereza Christine CRNA. ANESTHETIC TYPE: Epidural. IV FLUIDS: 1000 mL ESTIMATED BLOOD LOSS: 500 mL URINE OUTPUT: 150 mL FINDINGS: Upon entering the abdominal cavity, the infant was noted to be renée breech with the spine on the patient's right. The had Apgars of 8 and 9, weight is 8 pounds 6 ounces, is a live male. Normal tubes and ovaries. DESCRIPTION OF PROCEDURE: Following adequate epidural anesthesia, the patient was placed in the supine position with a roll under the right hip. At this point, she was prepped and draped in the usual fashion. A timeout was performed, at which time a Pfannenstiel incision was carried down through subcutaneous tissue to the fascia. The fascia was incised transversely, then using both blunt and sharp dissection was freed of the rectus abdominis. The rectus was split along the midline. Peritoneum entered high. Care was taken to avoid any injury to bowel or bladder. The incision was carried superiorly and inferiorly with Metzenbaum scissors. Bladder blade was placed, and a bladder flap was developed using both blunt and sharp dissection. At this point, a low transverse uterine incision was accomplished utilizing a #10 blade as well as bandage scissors in the finger spread technique. The breech of the was brought into the incision, delivered the buttocks first, and then the hips and then the legs were flexed and then delivered. The was then brought down to the shoulders. Both arms were swept, and then the head was delivered without incident. Cord was doubly clamped and divided, and the infant was handed to the pediatric team that was standing by. At this point, the cord blood samples were obtained. The placenta was manually delivered. The uterus was exteriorized, wrapped in moist laps, and cleansed thoroughly with a dry lap. There was no evidence of any retaining placental or amniotic membrane tissue. There were two bleeders noted in the lower portion of the incision. These were treated with ring forceps. The incision itself was then closed utilizing 0 Vicryl in a running locking suture. Good hemostasis was observed. Then the incision was imbricated with 0 Vicryl. The incision was noted to be free and dry of any bleeding. Moist lap was placed over the incision. The uterus was tipped forward. The cul-de-sac was suctioned, and estimated blood loss was accomplished at that time. The cul-de-sac was then irrigated, uterus replaced, and the gutters were bilaterally irrigated. No further bleeding was noted. The incision was once again inspected for hematoma or active bleeding, none was noted. The peritoneum was then closed utilizing 2-0 Vicryl in a running suture. Rectus was inspected and no bleeding noted. It was reapproximated with two small loose 2-0 Vicryl. At this point, the fascia was irrigated. No bleeding noted, so it was then closed utilizing looped PDS. Care was taken to try to bury the knots to minimize patient's discomfort postoperatively. The subcutaneous tissue was noted to be very thin, roughly 1 cm in thickness, so it was decided not to close subcuticularly but the closed primarily with the subcuticular 4-0 Monocryl. The wound was then dressed with Mastisol, Steri-Strips, and then a dressing. The patient tolerated the procedure well and was taken to recovery in stable condition. Sponge and needle counts were correct. TD: 03/29/2018 06:02 KATT
[2018-03-29] MEDS: SODIUM CHLORIDE FLUSH 0.9% 10 ML SYRINGE IVP SCH ×2 (12:04→17:15)
[2018-03-29] MEDS: KETOROLAC 30 MG/ML VIAL IV SCH ×3 (12:04→18:26)
--- NOTE | 2018-03-29 13:56 | PROVIDER PROGRESS NOTE ---
Subjective - General Admit Date: 03/29/18 Procedure Date: 03/29/18 Post Op Days: 0 Procedure Performed: Emergency PLTC/S - Review of Systems Wound/Incisions: positive: Dressing dry and intact General: positive: No symptoms (Pain 1.5/10 good pain control) Gastrointestinal: negative: Flatus Psychiatric: positive: No symptoms Objective - Patient Data Reviewed Vital Signs: Yes Vital Signs: Vital Signs x48h Temp Pulse Pulse Resp BP BP Pulse Ox 03/29/18 11:30 37.2 C 95 18 130/63 98 03/29/18 08:00 37.1 C 105 H 18 113/71 98 03/29/18 06:06 36.1 C L 114 H 21 125/64 100 03/29/18 05:57 36.1 C L 106 H 20 125/64 100 03/29/18 05:52 36.1 C L 106 H 21 118/65 100 Weight: Weight 03/27/18 03/28/18 03/29/18 23:59 23:59 23:59 Weight (kg) 70.307 kg Intake & Output: Intake and Output Totals x24h 03/27/18 03/28/18 03/29/18 23:59 23:59 23:59 Intake Total 3000 Output Total 180 Balance 2820 - Lab Results Lab Results: 03/29/18 02:20 Other Lab Results: Lab Results x24hrs 03/29/18 Range/Units 02:20 WBC 8.6 (4.8-10.8) x10^3/uL RBC 3.30 L (4.20-5.40) 10^6/uL Hgb 10.6 L (12.0-16.0) g/dL Hct 30.7 L (37.0-47.0) % MCV 92.9 (81.0-99.0) fL MCH 32.2 H (27.0-31.0) pg MCHC 34.6 (32.0-36.0) g/dL RDW 13.5 (12.0-15.0) % Plt Count 241 (130-450) 10^3/uL MPV 8.5 (7.9-10.8) fL Neut # (Auto) 6.2 (1.5-6.6) 10^3/uL Lymph # (Auto) 1.6 (1.5-3.5) 10^3/uL [place] # (Auto) 0.6 (0.0-1.0) 10^3/uL Eos # (Auto) 0.2 (0.0-0.7) 10^3/uL Baso # (Auto) 0.1 (0.0-0.1) 10^3/uL Absolute Nucleated RBC 0.01 x10^3/uL Nucleated RBC % 0.1 /100WBC - Current Medications Current Medications: Current Medications Generic Name Dose Route Start Last Admin Trade Name Bertoq PRN Reason Stop Dose Admin Lactated Ringer's 1,000 mls @ 100 mls/hr 03/29/18 06:00 03/29/18 06:00 Lr IV 100 mls/hr .Q10H BOB Administration Ketorolac Tromethamine 30 mg 03/29/18 06:00 03/29/18 12:04 Toradol Inj (30mg) IV 03/30/18 00:01 30 mg Q6H BOB Administration - Physical Exam Wound/Incisions: positive: Dressing dry and intact General Appearance: positive: No acute distress, Alert Respiratory: positive: Chest non-tender, No respiratory distress, Breath sounds nml Cardiovascular: positive: Regular rate & rhythm, No murmur, No gallop Abdomen: positive: Non-tender, No organomegaly, Nml bowel sounds, Mass (At U) Extremities: negative: Calf tenderness, Ginette's sign/cords Neurologic/Psychiatric: positive: Oriented x3 Impression/Plan - Problem List Problem List: POD # 0 mild enemia.
[2018-03-29] MEDS: ACETAMINOPHEN 500 MG TABLET PO SCH ×3 (14:04→22:13)
[2018-03-29] MEDS: DOCUSATE SODIUM 100 MG CAPSULE PO SCH (22:14)
[2018-03-29] MEDS: SIMETHICONE CHEW 80 MG TABLET PO SCH (23:22)
[2018-03-30] MEDS: IBUPROFEN 600 MG TABLET PO SCH ×4 (00:40→18:35)
[2018-03-30 06:04] LABS: BASOPHILS % (AUTO) 0.2 %; EOSINOPHILS # (AUTO) 0.1 10^3/uL (0.0-0.7); EOSINOPHILS % (AUTO) 1.5 %; HGB - HEMOGLOBIN 7.6 g/dL (12.0-16.0); LYMPHOCYTES # (AUTO) 1.2 10^3/uL (1.5-3.5); LYMPHOCYTES % (AUTO) 15.1 %; MEAN CORPUSCULAR HEMOGLOBIN 31.3 pg (27.0-31.0); MEAN CORPUSCULAR HGB CONC 32.5 g/dL (32.0-36.0); MEAN CORPUSCULAR VOLUME 96.3 fL (81.0-99.0); MEAN PLATELET VOLUME 8.2 fL (7.9-10.8); MONOCYTES # (AUTO) 0.5 10^3/uL (0.0-1.0); MONOCYTES % (AUTO) 5.9 %; NEUTROPHILS % (AUTO) 77.3 %; PLT - PLATELET COUNT 158 10^3/uL (130-450); RED BLOOD COUNT 2.43 10^6/uL (4.20-5.40); RED CELL DISTRIBUTION WIDTH 13.3 % (12.0-15.0); WHITE BLOOD COUNT 7.8 x10^3/uL (4.8-10.8)
[2018-03-30] MEDS: ACETAMINOPHEN 500 MG TABLET PO SCH ×3 (07:01→23:25)
[2018-03-30] MEDS: KETOROLAC 30 MG/ML VIAL IV SCH (08:06)
--- NOTE | 2018-03-30 09:04 | PROVIDER PROGRESS NOTE ---
Subjective - General Admit Date: 03/29/18 Procedure Date: 03/29/18 Post Op Days: 1 Procedure Performed: Emergency PLTC/S - Review of Systems Wound/Incisions: positive: Healing well (removed healing well) General: positive: No symptoms (Pain 2/10 good pain control. feels like an ach motrin only) Gastrointestinal: positive: Flatus Psychiatric: positive: No symptoms Objective - Patient Data Reviewed Vital Signs: Yes Vital Signs: Vital Signs x48h Temp Pulse Resp BP Pulse Ox 03/30/18 03:19 36.7 C 83 18 120/73 98 Weight: Weight 03/28/18 03/29/18 03/30/18 23:59 23:59 23:59 Weight (kg) 70.307 kg Intake & Output: Intake and Output Totals x24h 03/28/18 03/29/18 03/30/18 23:59 23:59 23:59 Intake Total 3640 Output Total 1430 Balance 2210 - Lab Results Lab Results: 03/30/18 05:48 Other Lab Results: Lab Results x24hrs 03/30/18 Range/Units 05:48 WBC 7.8 (4.8-10.8) x10^3/uL RBC 2.43 L (4.20-5.40) 10^6/uL Hgb 7.6 L (12.0-16.0) g/dL Hct 23.4 L (37.0-47.0) % MCV 96.3 (81.0-99.0) fL MCH 31.3 H (27.0-31.0) pg MCHC 32.5 (32.0-36.0) g/dL RDW 13.3 (12.0-15.0) % Plt Count 158 (130-450) 10^3/uL MPV 8.2 (7.9-10.8) fL Neut # (Auto) 6.0 (1.5-6.6) 10^3/uL Lymph # (Auto) 1.2 L (1.5-3.5) 10^3/uL [place] # (Auto) 0.5 (0.0-1.0) 10^3/uL Eos # (Auto) 0.1 (0.0-0.7) 10^3/uL Baso # (Auto) 0.0 (0.0-0.1) 10^3/uL Absolute Nucleated RBC 0.00 x10^3/uL Nucleated RBC % 0.0 /100WBC - Current Medications Current Medications: Current Medications Generic Name Dose Route Start Last Admin Trade Name Nahid PRN Reason Stop Dose Admin Acetaminophen 1,000 mg 03/29/18 06:00 03/30/18 07:01 Tylenol PO 1,000 mg Q8H BOB Administration Docusate Sodium 100 mg 03/29/18 21:00 03/29/18 22:14 Colace 100mg Capsule PO 100 mg BID BOB Administration Ibuprofen 600 mg 03/30/18 01:00 03/30/18 07:02 Motrin PO 600 mg Q6HR BOB Administration Simethicone 80 mg 03/29/18 21:00 03/29/18 23:22 Mylicon PO 80 mg 0900,1300,1800,2100 BOB Administration - Physical Exam Wound/Incisions: positive: Healing well, No drainage General Appearance: positive: No acute distress, Alert Respiratory: positive: Chest non-tender, No respiratory distress, Breath sounds nml Cardiovascular: positive: Regular rate & rhythm, No murmur, No gallop Abdomen: positive: Non-tender, No organomegaly, Nml bowel sounds, No distention, Mass (u-2) Back: negative: CVA tenderness (R), CVA tenderness (L) Extremities: positive: Non-tender. negative: Calf tenderness, Ginette's sign/cords Impression/Plan - Problem List Problem List: Post op anemia tolerating well repeat CBC in AM.
[2018-03-30] MEDS: DOCUSATE SODIUM 100 MG CAPSULE PO SCH ×2 (09:30→21:44)
[2018-03-30] MEDS: SIMETHICONE CHEW 80 MG TABLET PO SCH ×4 (09:30→21:44)
[2018-03-31] MEDS: IBUPROFEN 600 MG TABLET PO SCH ×2 (00:27→06:42)
[2018-03-31 05:28] LABS: BASOPHILS % (AUTO) 0.2 %; EOSINOPHILS # (AUTO) 0.2 10^3/uL (0.0-0.7); EOSINOPHILS % (AUTO) 2.2 %; HGB - HEMOGLOBIN 8.1 g/dL (12.0-16.0); LYMPHOCYTES # (AUTO) 1.2 10^3/uL (1.5-3.5); LYMPHOCYTES % (AUTO) 15.3 %; MEAN CORPUSCULAR HEMOGLOBIN 31.5 pg (27.0-31.0); MEAN CORPUSCULAR HGB CONC 32.9 g/dL (32.0-36.0); MEAN CORPUSCULAR VOLUME 95.7 fL (81.0-99.0); MEAN PLATELET VOLUME 7.7 fL (7.9-10.8); MONOCYTES # (AUTO) 0.4 10^3/uL (0.0-1.0); MONOCYTES % (AUTO) 5.3 %; NEUTROPHILS # (AUTO) 6.3 10^3/uL (1.5-6.6); PLT - PLATELET COUNT 188 10^3/uL (130-450); RED BLOOD COUNT 2.57 10^6/uL (4.20-5.40); RED CELL DISTRIBUTION WIDTH 13.3 % (12.0-15.0); WHITE BLOOD COUNT 8.1 x10^3/uL (4.8-10.8)
[2018-03-31] MEDS: ACETAMINOPHEN 500 MG TABLET PO SCH (08:00)
--- NOTE | 2018-03-31 09:10 | PROVIDER PROGRESS NOTE ---
Subjective - General Admit Date: 03/29/18 Procedure Date: 03/29/18 Post Op Days: 2 Procedure Performed: Emergency PLTC/S - Review of Systems Wound/Incisions: positive: Healing well, No drainage (noerythema) General: positive: No symptoms (Pain 2/10 good pain control. feels like an ach motrin only) Cardiovascular: positive: No symptoms, Chest pain Gastrointestinal: positive: No symptoms, Nausea, Flatus Psychiatric: positive: No symptoms Objective - Patient Data Reviewed Vital Signs: Yes Vital Signs: Vital Signs x48h Temp Pulse Resp BP Pulse Ox 03/31/18 08:03 36.6 C 107 H 18 134/96 H 95 03/31/18 06:47 36.7 C 92 16 119/70 97 Weight: Weight 03/29/18 03/30/18 03/31/18 23:59 23:59 23:59 Weight (kg) 70.307 kg Intake & Output: Intake and Output Totals x24h 03/29/18 03/30/18 03/31/18 23:59 23:59 23:59 Intake Total 3640 Output Total 1430 Balance 2210 - Lab Results Lab Results: 03/31/18 05:17 Other Lab Results: Lab Results x24hrs 03/31/18 03/30/18 Range/Units 05:17 05:48 WBC 8.1 7.8 (4.8-10.8) x10^3/uL RBC 2.57 L 2.43 L (4.20-5.40) 10^6/uL Hgb 8.1 L 7.6 L (12.0-16.0) g/dL Hct 24.6 L 23.4 L (37.0-47.0) % MCV 95.7 96.3 (81.0-99.0) fL MCH 31.5 H 31.3 H (27.0-31.0) pg MCHC 32.9 32.5 (32.0-36.0) g/dL RDW 13.3 13.3 (12.0-15.0) % Plt Count 188 158 (130-450) 10^3/uL MPV 7.7 L 8.2 (7.9-10.8) fL Neut # (Auto) 6.3 6.0 (1.5-6.6) 10^3/uL Lymph # (Auto) 1.2 L 1.2 L (1.5-3.5) 10^3/uL [place] # (Auto) 0.4 0.5 (0.0-1.0) 10^3/uL Eos # (Auto) 0.2 0.1 (0.0-0.7) 10^3/uL Baso # (Auto) 0.0 0.0 (0.0-0.1) 10^3/uL Absolute Nucleated RBC 0.00 0.00 x10^3/uL Nucleated RBC % 0.0 0.0 /100WBC - Current Medications Current Medications: Current Medications Generic Name Dose Route Start Last Admin Trade Name Freq PRN Reason Stop Dose Admin Acetaminophen 1,000 mg 03/29/18 06:00 03/31/18 08:00 Tylenol PO 1,000 mg Q8H BOB Administration Docusate Sodium 100 mg 03/29/18 21:00 03/30/18 21:44 Colace 100mg Capsule PO 100 mg BID BOB Administration Ibuprofen 600 mg 03/30/18 01:00 03/31/18 06:42 Motrin PO 600 mg Q6HR BOB Administration Oxycodone HCl 5 mg 03/29/18 05:37 03/31/18 07:56 Roxicodone PO 5 mg Q4HR PRN Administration PAIN Simethicone 80 mg 03/29/18 21:00 03/30/18 21:44 Mylicon PO 80 mg 0900,1300,1800,2100 BOB Administration - Physical Exam Wound/Incisions: positive: Healing well, No drainage General Appearance: positive: No acute distress, Alert (6/10 pt afraid to take oxycodone) Respiratory: positive: Chest non-tender, No respiratory distress, Breath sounds nml Cardiovascular: positive: Regular rate & rhythm, No murmur, No gallop Abdomen: positive: Non-tender, No organomegaly, Nml bowel sounds, No distention, Mass (U-3) Back: negative: CVA tenderness (R), CVA tenderness (L) Extremities: positive: Calf tenderness, Ginette's sign/cords Impression/Plan - Problem List Problem List: Proressing well Discharge medication Oxycodone 5 mg Motrin 600 mg Colace 100 mg reviewed breast feeding contraception
--- NOTE | 2018-03-31 09:14 | Discharge Plan ---
Discharge Plan Disposition: 01 Home, Self Care Condition: Good Diet: Regular Activity Restrictions: No Restrictions Shower Restrictions: No Driving Restrictions: Yes (nodriveing while on narcotics) No Smoking: If you smoke, Please STOP! Call for help.
[2018-03-31 12:07] VITALS: BP 133/74
--- NOTE | 2018-03-31 15:10 | Labor Flowsheet ---
Labor Flowsheet Datetime Report Generated by CPN: 03/31/2018 15:10 Datetime: 03/29/2018 16:09 VITAL SIGNS NBP Sys/Nany/Mean (mmHg): 115 : 66 : 76 Pulse: 76 SpO2 (%): 99 LaborFlag: Labor Datetime: 03/29/2018 04:32 ASSESSMENT A Monitor Mode: Doppler (Annotations: 135) Datetime: 03/29/2018 04:25 UTERINE ACTIVITY Monitor Mode: External Frequency (min): 2-6 Quality: Strong Duration (sec): 60-80 Pattern: Normal: <= 5 Contractions in 10 Minutes Resting Tone (Palpate): Relaxed FHR Baseline Rate : 120 Variability: Moderate 6-25 bpm Accelerations: None Decelerations: None Category: Category I Datetime: 03/29/2018 04:23 Communication Comments: Pt to OR with M.Aube and Dr. Rogersem and M.Guanako Datetime: 03/29/2018 04:03 COMMUNICATION Communication: Provider at Bedside Provider Notified (Name): Dr. Giem Datetime: 03/29/2018 04:02 Anesthesia Comments: Anesthesia administered ephedrine Datetime: 03/29/2018 04:00 Amniotic Fluid Color: Heavy Meconium Vaginal Exam Comments: Meconium noted Datetime: 03/29/2018 03:57 I/O Interventions: Duarte Cath Inserted Datetime: 03/29/2018 03:54 MEDICATIONS Tocolytics: Terbutaline 0.25mg Subcutaneous Datetime: 03/29/2018 03:45 Effacement (%): 90 Station: 0 Datetime: 03/29/2018 03:43 Epidural Procedure: Test Dose Datetime: 03/29/2018 03:35 Notification Reason: Labor Status; Pain Datetime: 03/29/2018 03:21 PROCEDURE TIME OUT Procedure Verify: Correct Patient Identity; Correct Side and Site are Marked; Accurate Procedure Co nsent Form; Agreement on Procedure to be Done; Correct Patient Position ANESTHESIA Anesthesia Plans: Epidural Datetime: 03/29/2018 03:15 PAIN Pain Scale: 10 Pain Coping: Crying Pain Assessment Comments: Pt screaming Datetime: 03/29/2018 03:10 VAGINAL EXAM Dilatation (cm): 5.0 Exam by: M. Guanako-Rotunda Datetime: 03/29/2018 03:00 PATIENT CARE IV/Blood Work: IV Bolus Started Datetime: 03/29/2018 02:38 Pain Relief Measures: Pain Medication Given Datetime: 03/29/2018 02:14 Pain Presence: Intermittent Pain Type: Contraction Pain Location: Abdomen Membrane Status: Ruptured Amniotic Fluid Amount: Small Membrane Comments: SRO M@ [id number] MATERNAL ASSESSMENT Level of Consciousness: Fully Conscious DTR's/Clonus: DTRs 2+; No Clonus Headache: Denies Breath Sounds, Left: Clear and Equal Breath Sounds, Right: Clear and Equal Nausea/Vomiting: Denies RUQ Epigastric Pain: Denies Patient Position/Activity: Semi-Fowlers Comfort Measures: Breathing/Relaxation Datetime: 03/29/2018 01:24 Stage of : Labor Membranes Ruptured Date/Time: 03/29/2018 00:00 Membranes Rupture Method: Spontaneous Amniotic Fluid Odor: Normal Vaginal Bleeding: None
== END 2018-03-31 12:30 | disposition home or self-care (01) | DRG 788 ==
LOC: WFO 00:54 → FBP 00:56 → WFO 01:15 → FBP 16:52
PROVIDERS: ADMIT Nurse Practitioner Obstetrics & Gynecology; ATTEND Nurse Practitioner Obstetrics & Gynecology
PROC: 10D00Z1 Extraction of Products of Conception, Low, Open Approach (ICD-10-PCS; principal; 2018-03-29 04:30)
DX: O32.1XX0 Maternal care for breech presentation, not applicable or unspecified (principal); Z3A.40 40 weeks gestation of pregnancy; Z37.0 Single live birth; O99.02 Anemia complicating childbirth
CPT/HCPCS: 36415; 85025; 99213

== ENCOUNTER 2018-10-16 08:00 | Outpatient (CLI) | payer OTHER | END 2018-10-16 23:59 | disposition home or self-care (01) | LOC: LAB.R 08:00 | PROVIDERS: ATTEND Obstetrics & Gynecology | DX: R30.0 Dysuria (principal) | CPT/HCPCS: 87086 ==